=== PATIENT | female | born 1970 | race Caucasian/White ===

== ENCOUNTER → 2020-07-26 13:41 | Outpatient (CLI) | payer OTHER, SELFPAY ==
--- NOTE | ~2020-07-26 | MM_ITS ---
EXAMINATION: MM screening estelita BI w kate HISTORY: Screening TECHNIQUE: Craniocaudal and mediolateral oblique 3-D tomosynthesis images were obtained and synthetic 2-D images were generated. CAD analysis was submitted and interpreted. COMPARISON: Comparison to multiple prior studies sequentially, with oldest reviewed study dated 11/25. BREAST PARENCHYMAL COMPOSITION: There are scattered areas of fibroglandular density. FINDINGS: There is no evidence of suspicious mass, calcification, or architectural distortion to sugg est malignancy in either breast. There has been no suspicious interval change. IMPRESSION: 1. No mammographic evidence of malignancy. 2. Recommend routine screening mammography in one year. BI-RADS Category 1: Negative Reviewed, dictated and finalized at location A.
== END ==
PROVIDERS: PCP Nurse Practitioner Adult Health; Visit Provider Nurse Practitioner Adult Health
DX: Z12.31 Encounter for screening mammogram for malignant neoplasm of breast (principal)
CPT/HCPCS: 77063; 77067

== ENCOUNTER 2022-10-09 17:21 | Emergency (ER) | payer OTHER, SELFPAY ==
[2022-10-09 17:52] VITALS: BP 132/81; PULSE 74; RESP 16; TEMP 36.8; O2SAT 97
--- NOTE | 2022-10-09 18:40 | ED.BACK ---
HPI - Back Pain/Injury General Chief Complaint: Back Pain/Injury Stated Complaint: low back pain Time Seen by Provider: 10/09/22 18:40 Source: patient Mode of arrival: ambulatory Limitations: no limitations History of Present Illness HPI Narrative: 52 y/o female presented for c/o back pain since getting out of a chair 3 days ago. Endorses Right lower back radiates to right hip, states it feels like a tight knot and spasms. Patient has been using heat, ice, massage and stretching without relief. Denies numbness, tingling, weakness of the extremity. Related Data Allergies Allergy/AdvReac Type Severity Reaction Status Date / Time No Known Allergies Allergy Verified 10/09/22 18:05 Review of Systems Review of Systems: CONSTITUTIONAL: Denies body aches, fever, chills EYES: Denies visual changes CARDIOVASCULAR: Denies chest pain, palpitations, or edema. RESPIRATORY: Denies cough or dyspnea. GASTROINTESTINAL: Denies abdominal pain, nausea, vomiting, or diarrhea. SKIN: Denies rash, itching, or wounds. MUSCULOSKELETAL: reports back pain NEUROLOGIC: Denies headache, numbness, tingling, or weakness. All systems reviewed & are unremarkable except as noted in HPI and below PMFSH Comments At time of signature, I have reviewed and agree with nursing past medical, surgical, social and family history unless otherwise noted. Please see nursing chart for further information. There is no relevant family history pertinent to the presenting complaint Exam Narrative: GENERAL: Well-appearing, well-nourished, and in no acute distress. HEAD: Normocephalic, atraumatic. EYES: conjunctivae clear NECK: Supple. full ROM CHEST: Speaks in full sentences. No respiratory distress. HEART: Regular rate and rhythm. Normal and equal peripheral pulses. MUSC: Right lower back/hip pain with deep palpation, No Vertebral point tenderness. BLEs with normal strength and sensation, normal range of motion. No open wounds, alignment normal, pulse palpable and equal bilaterally, skin warm, dry, pink. Capillary refill less than 3 seconds. Gait steady. SKIN: Warm, dry, no rash. NEURO: Alert and oriented x3. Course Course Emergency Course: Patient is aware of diagnosis, understands and agrees to treatment plan. Anticipatory guidance given. Patient agrees to follow-up as directed and is aware of reasons to seek care at the emergency department. Portions of this record may have been created with voice recognition software Level of Care: Express Care Visit Vital Signs Vital signs: Vital Signs Temperature 98.2 F 10/09/22 17:52 Pulse Rate 74 10/09/22 17:52 Respiratory Rate 16 10/09/22 17:52 Blood Pressure 132/81 10/09/22 17:52 Pulse Oximetry 97 10/09/22 17:52 Temperature 98.2 F 10/09/22 17:52 Pulse Rate 74 10/09/22 17:52 Respiratory Rate 16 10/09/22 17:52 Blood Pressure 132/81 10/09/22 17:52 Pulse Oximetry 97 10/09/22 17:52 Oxygen Delivery Room Air 10/09/22 18:00 Reviewed MDM - Back Pain/Injury MDM Narrative Medical decision making narrative: Advised supportive measures and s/s to go to the ER. Pt is stable and appropriate for outpt treatment and follow up with pcp. Differential Diagnosis Differential diagnosis: Likely lumbar radiculopathy, sciatica, strain of lumbar region, renal colic, pyelonephritis and discitis Discharge Plan Discharge Clinical Impression: Lower back pain Patient Disposition: Home, Self-Care Condition: Stable Instructions: Acute Low Back Pain (ED) Additional Instructions: Rest. Avoid pushing, pulling, lifting or anything that worsens the symptoms Tylenol 1000mg every 8 hours as needed Cyclobenzaprine (Flexeril) is a muscle relaxer. Take it as directed. It can cause drowsiness so do not drive or operate machinery until you know how it makes you feel. Alternate ice/heat to the site. Lidocaine or salon pas pain patch or use pain cream like icy/hot or biofreeze. Follow up with
== END 2022-10-09 18:50 | disposition home or self-care (01) ==
PROVIDERS: Emergency Provider Nurse Practitioner Family
DX: M54.50 Low back pain, unspecified (principal); Z98.84 Bariatric surgery status
CPT/HCPCS: 99203; G0463

== ENCOUNTER → 2022-11-14 12:19 | Outpatient (CLI) | payer OTHER, SELFPAY ==
--- NOTE | ~2022-11-14 | MM_ITS ---
EXAMINATION: MM screening estelita BI w kate HISTORY: Screening TECHNIQUE: Craniocaudal and mediolateral oblique 3-D tomosynthesis images were obtained and synthetic 2-D images were generated. CAD analysis was submitted and interpreted. COMPARISON: Comparison to multiple prior studies sequentially, with oldest reviewed study dated 11/25. BREAST PARENCHYMAL COMPOSITION: There are scattered areas of fibroglandular density. FINDINGS: There is no evidence of suspicious mass, calcification, or architectural distortion to sugg est malignancy in either breast. There has been no suspicious interval change. IMPRESSION: 1. No mammographic evidence of malignancy. 2. Recommend routine screening mammography in one year. BI-RADS Category 1: Negative Reviewed, dictated and finalized at location A. ANICAL SERVICE REPRESENTATIVE
== END ==
PROVIDERS: PCP Obstetrics & Gynecology; Visit Provider Obstetrics & Gynecology
DX: Z12.31 Encounter for screening mammogram for malignant neoplasm of breast (principal)
CPT/HCPCS: 77063; 77067

== ENCOUNTER 2023-01-27 05:52 | Day surgery (SDC) | payer OTHER, SELFPAY ==
[2022-11-14 14:00] VITALS: BMI 30.7
[2023-01-16 09:39] VITALS: BMI 29.2
--- NOTE | 2023-01-27 07:22 | P.PNAN_ITS ---
Anes - Initial Pre Proc Eval Procedure: Operation Date: 01/27/23 07:30 Proposed Procedures p Screening Colonoscopy - Obie Hoang MD Date/Time: 01/27/23 07:22 Surgeon: Obie Hoang MD Pre Op Diagnosis: Neoplasm Screening Patient Data Age: 52 Gender: F Height: 1.68 m Weight: 91.9 kg Allergies Allergy/AdvReac Type Severity Reaction Status Date / Time No Known Allergies Allergy Verified 01/27/23 06:35 Home Medications Medication Instructions Recorded Confirmed Type cranberry [id number] 1 tablet PO DAILY 01/16/23 01/27/23 History coagulans 250 mg-30 mg-15 mg tablet (Azo Cranberry Plus Probiotic) multivit with minerals-iron 18 1 tablet PO DAILY 01/16/23 01/27/23 History mg-folic ac 400 mcg-vit K 25 mcg tablet (Adults Multivitamin) sertraline 50 mg tablet 50 mg PO DAILY 01/16/23 01/27/23 History Patient hx anesthesia problems: none Family hx anesthesia problems: none Results Review: All pre-operative results and documents have been reviewed as part of the pre- operative evaluation. [facility] Past Medical History Medical History (Updated 01/27/23 @ 07:23 by Chito Capone MD) Obesity Surgical History Surgical History (Updated 01/27/23 @ 07:23 by Chito Capone MD) S/P gastric surgery Social History Social History Smoking packs per day: 1 Smoking cigarettes per day: 20.0 Years smoked: 25 Smoking pack-years: 25.00 Smoking status: Former smoker Tobacco type: cigarettes Smoking end date: 10/13/08 Alcohol intake: current Drinks per week: 1 Substance use: never Substance use type: does not use Living arrangements: with family Spiritual care concerns: No Anes - Eval Final PreProcedure Day of Procedure 01/27/23 07:22 Patient weight: obese Heart: regular rate and rhythm Lungs: clear to auscultation Airway: Mallampati scale class II Neurological: alert and oriented Last oral intake: >/= 8 hours ASA classification: II Emergent: no Anesthetic plan: proceed Anesthesia type and monitoring: general GIVS and standard monitoring Results Review: All pre-operative results and documents have been reviewed as part of the pre- operative evaluation. Informed Consent: The patient's anesthetic plan and its attendant risks and benefits were discussed with the patient/family/POA. Questions were solicited and answers provided to the satisfaction of the patient/family/POA.
[2023-01-27] MEDS: LACTATED RINGERS 1,000 ML 150 ML IV CONT (07:24)
--- NOTE | 2023-01-27 07:35 | PM.HPGS ---
History of Present Illness History of Present Illness Consent: Risks, benefits, and alternatives have been discussed and questions answered. Patient agrees to proceed with procedure. Chief complaint: Neoplasm Screening Narrative: Deidra Valdovinos is a 52 year old female here for first screening colonoscopy Review of Systems Constitutional: Constitutional: Denies headache(s) and Denies weakness Eyes: Eyes: Denies blurry vision ENT: Reports Normal hearing present, Denies headache(s) and Denies neck pain Cardiovascular: Cardiovascular: Denies chest pain and Denies dyspnea Respiratory: Respiratory: Denies dyspnea Gastrointestinal: Gastrointestinal: Reports no additional gastrointestinal complaints Genitourinary: Genitourinary: Denies dysuria Musculoskeletal: Musculoskeletal: Denies neck pain Integumentary/Breasts: Skin/Breast: Denies dry skin Neurologic: Reports Normal hearing present, Denies headache(s) and Denies weakness Psychiatric: Psychiatric: Denies anxiety Endocrine: Endocrine: Denies change in body appearance Hematologic/Lymphatic: Hematologic/Lymphatic: Denies easy bleeding Allergic/Immunologic: Allergic/Immunologic: Denies urticaria [facility] Past Medical History Medical History (Updated 01/27/23 @ 07:35 by Obie Hoang MD) Colon cancer screening Obesity Surgical History Surgical History (Updated 01/27/23 @ 07:23 by Chito Capone MD) S/P gastric surgery Social History Social History Smoking packs per day: 1 Smoking cigarettes per day: 20.0 Years smoked: 25 Smoking pack-years: 25.00 Smoking status: Former smoker Tobacco type: cigarettes Smoking end date: 10/13/08 Alcohol intake: current Drinks per week: 1 Substance use: never Substance use type: does not use Living arrangements: with family Spiritual care concerns: No Meds Home Medications and Allergies Home Medications Medication Instructions Recorded Confirmed Type cranberry [id number] 1 tablet PO DAILY 01/16/23 01/27/23 History coagulans 250 mg-30 mg-15 mg tablet (Azo Cranberry Plus Probiotic) multivit with minerals-iron 18 1 tablet PO DAILY 01/16/23 01/27/23 History mg-folic ac 400 mcg-vit K 25 mcg tablet (Adults Multivitamin) sertraline 50 mg tablet 50 mg PO DAILY 01/16/23 01/27/23 History Allergies Allergy/AdvReac Type Severity Reaction Status Date / Time No Known Allergies Allergy Verified 01/27/23 06:35 Exam Const: General: comfortable and no acute distress HENMT: Face/Nose/Sinus: Normal nares present Eyes: General: appearance normal, both eyes and all related structures Neck: Neck: no JVD Resp: Auscultation: clear to auscultation bilaterally Cardio: Rate: regular rate Rhythm: regular rhythm GI: Inspection: non-distended GI Palp: Yes Soft to palpation Skin: General skin exam: normal color Neuro: General: gait normal Speech: normal speech Extrem: General: normal to inspection Psych: Mental Status: mental status grossly normal Assessment and Plan Assessment and plan (1) Colon cancer screening: Code(s): Z12.11 - Encounter for screening for malignant neoplasm of colon Status: Acute Assessment and Plan: colonoscopy
[2023-01-27 08:01] VITALS: BP 102/51; PULSE 58; RESP 18; O2SAT 97
[2023-01-27 08:02] VITALS: BP 103/63; PULSE 57; RESP 20; O2SAT 100
--- NOTE | 2023-01-27 08:07 | WPDANESPN ---
Anes - Prog Note Post-Op Date/Time: 01/27/23 08:07 Cardiovascular status: normal Respiratory status: normal Airway patency: baseline Mental status: baseline Post-Op hydration status: normal Vital Signs: Last Vital Signs Pulse 57 L 01/27/23 08:02 Resp 20 01/27/23 08:02 BP 103/63 01/27/23 08:02 Pulse Ox 100 01/27/23 08:02 O2 Del Method Room Air 01/27/23 08:02 Pain Score (VAS): 0/10 Patient Feedback: Patient satisfied with anesthetic care.
[2023-01-27 08:12] VITALS: BP 104/68; PULSE 59; RESP 20; O2SAT 100
== END 2023-01-27 08:25 | disposition home or self-care (01) ==
PROVIDERS: Visit Provider Internal Medicine Gastroenterology
PROC: 0DJD8ZZ Inspection of Lower Intestinal Tract, Via Natural or Artificial Opening Endoscopic (ICD-10-PCS; CPT 45378; principal; 2023-01-27 07:30)
DX: Z12.11 Encounter for screening for malignant neoplasm of colon (principal)
CPT/HCPCS: 45378

== ENCOUNTER 2023-04-21 08:11 | Outpatient (CLI) | payer OTHER, SELFPAY ==
--- NOTE | ~2023-04-21 | MR_ITS ---
MRI of the left knee Clinical history: Pain Technique: Coronal proton density and proton density-weighted images, sagittal proton-density and T2 fat-sat images, and axial proton-density fat-saturated images were acquired. Findings: Anterior and posterior cruciate ligaments are intact. Medial collateral ligament and the la teral collateral ligament complex are intact. Popliteus tendon is intact. There is probable complex tear of the body segment of the medial meniscus which is relatively diminut john. No lateral meniscal tear seen. There is focal moderate chondromalacia at the lateral joint line. There is additional focal high-grad e chondral malacia the central aspect of the medial femoral condyle. Lateral compartment articular ca rtilage is well preserved. Femoral trochlear cartilage is well preserved. There is high-grade chondro malacia over the lateral patellar facet. Extensor mechanism is intact. Small joint effusion present. No Mon's cyst. Impression: Suspected complex tear of the body segment of the medial meniscus, which is relatively diminutive. 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 Reviewed, dictated and finalized at location M. Impression: Suspected complex tear of the body segment of the medial meniscus, which is rel atively diminutive. 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
== END 2023-04-21 08:12 ==
PROVIDERS: PCP Internal Medicine; Visit Provider Orthopaedic Surgery
DX: M94.262 Chondromalacia, left knee (principal)
CPT/HCPCS: 73721

== ENCOUNTER 2023-07-10 15:00 | Outpatient (RCR) | payer OTHER, SELFPAY ==
--- NOTE | 2023-06-04 14:28 | OPREHPOC ---
Outpatient Therapy Plan of Care This is a Multidisciplinary Plan of Care that may contain components documented by all disciplines (PT, OT, and ST.) PT Problem 1 PT Problem #1 Knowledge Deficit PT Goal 1 Goal 1. Patient will perform independent HEP Target Visit 5 PT Problem 2 PT Problem #2 Impaired Strength PT Goal 1 Goal 1. Improve pelvic floor strength to 4/5 to decrease incontinence 2. Improve pelvic floor endurance to 10 seconds to decrease incontinence Target Visit 5 PT Goal 2 Goal 3. Improve hip strength to 4+/5 radu Target Visit 5 PT Problem 3 PT Problem #3 Impaired Functional ADLs PT Goal 1 Goal 1. Patient will report no more than 1 instance of incontinence in a 2 week time frame Target Visit 5
--- NOTE | 2023-06-04 14:28 | PTOPEVAL1 ---
Assessment and note entered by Sri Mcguire DPT Evaluation Information Assessment Status Evaluation Subjective Information Pt reports urinary incontinence that is worsening over time, about a year at least. Incontinence occurs 3 times a week, is typically a small volume . Urinates more than 10 times a day and usually none at night. Can hold urge 45-60 minutes. Sometimes will gomez to the bathroom due to fear of leaking. Usually occurs while on the way to the bathroom. Typically does not have pain with urination but has had 8 UTI's in the last 2 years and has symptoms currently. Has not had her urine cultured all the time, started antibiotic last night. BM 1-2 times a day, denies pain. No history of pelvic pain. Pt has been 2 times, 2 vaginal deliveries with tearing with at least 1 of them. Had a growth removed from her uterus 10 years ago. Uses IUD for heavy periods. Has been told she is post-menopausal. No other b/b issues. Patient goal: not have to pee my pants . Has had moments where she has had to change her clothes due to incontinence. Reports frustration. Reported Pain Level Pain Score 0: Self Report Assessment PT Clinical Summary The patient is presenting to skilled therapy with worsening urinary incontinence. She presents with decreased pelvic floor strength and endurance as well as decreased overall hip and core strength which are contributing to her incontinence that occurs multiple times a week. She will highly benefit from therapy to address these impairments in order to return to prior level of function. Plan of Care Interventions Manual Therapy,Neuro Re-education,Patient/ Caregiver Education,Therapeutic Activities, Therapeutic Exercise PT Services Indicated Yes Treatment Frequency and 1 time a week for 4 weeks Duration These treatments will address the objective and functional deficits as defined above. The patient will be advanced safely and appropriately in order for the patient to progress towards his/her prior level of function. Additional exercises will be introduced and as well as a comprehensive home exercise program upon discharge, if needed, ?to ensure carryover of functional gains achieved in the clinic. This treatment plan has been reviewed and agreement upon by the patient.
--- NOTE | 2023-06-26 13:23 | PCPTNOTE ---
Patient called to cancel appointment for 06/27/23. She stated she was unable to reschedule and would be at her next visit.
--- NOTE | 2023-07-10 15:33 | OPREHPOC ---
Outpatient Therapy Plan of Care This is a Multidisciplinary Plan of Care that may contain components documented by all disciplines (PT, OT, and ST.) PT Problem 1 PT Problem #1 Knowledge Deficit PT Goal 1 Goal 1. Patient will perform independent HEP Target Visit 5 Progress Met PT Problem 2 PT Problem #2 Impaired Strength PT Goal 1 Goal 1. Improve pelvic floor strength to 4/5 to decrease incontinence 2. Improve pelvic floor endurance to 10 seconds to decrease incontinence Target Visit 5 Progress Partially Met Comment 3/5, 10 seconds PT Goal 2 Goal 3. Improve hip strength to 4+/5 rdau Target Visit 5 Progress Partially Met PT Problem 3 PT Problem #3 Impaired Functional ADLs PT Goal 1 Goal 1. Patient will report no more than 1 instance of incontinence in a 2 week time frame Target Visit 5 Progress Partially Met
--- NOTE | 2023-07-10 15:33 | PTOPDC ---
Assessment and note entered by Sri Mcguire DPYamile Evaluation Information Assessment Status Discharge Subjective Information Pt reports she has been very busy and struggling to do HEP. States her incontinence has been sporadic, is not happening every day. Does report she thinks her incontinence is occurring less often but hard to keep track. Reported Pain Level Pain Score 0: Self Report Assessment PT Clinical Summary The patient has made some progress in therapy and reports she thinks her incontinence is occurring less often. She demonstrates improved hip strength and improved pelvic floor endurance. She states she would like to discharge to independent program this visit due to busy schedule and will be out of town for several weeks. The patient has been educated in a thorough HEP and educated to follow up with MD and/or PT as needed. Plan of Care PT Services Indicated No
== END 2023-07-11 10:17 | disposition home or self-care (01) ==
LOC: ANHPT 15:00
PROVIDERS: PCP Internal Medicine; Visit Provider Internal Medicine
DX: R32 Unspecified urinary incontinence (principal)
CPT/HCPCS: 97112; 97161; 97530

== ENCOUNTER 2024-11-23 12:06 | Emergency (ER) | payer OTHER, SELFPAY ==
[2024-11-23 12:14] VITALS: BP 124/73; PULSE 73; RESP 16; TEMP 36.6; O2SAT 100
--- NOTE | 2024-11-23 12:16 | ED_ITS ---
HPI - URI/Sore Throat General Chief Complaint: Upper Respiratory Infection Stated Complaint: Upper Respiratory Symptoms Source: patient and RN notes reviewed Mode of arrival: ambulatory Limitations: no limitations History of Present Illness HPI Narrative: Patient is a 54-year-old female who presents to the [facility] with complaints of sinus pain and pressure for the past 3 weeks. Patient endorses intermittent headache. States that she has had ongoing intermittent nausea for the last 3 weeks as well. She denies cough, shortness of breath, chest pain. Denies sore throat or fevers. Related Data Home Medications ?Medication ?Instructions ?Recorded ?Confirmed ?Last Taken ?Type multivit with minerals-iron 18 1 tablet PO DAILY 01/16/23 11/23/24 01/16/23 History mg-folic ac 400 mcg-vit K 25 mcg tablet (Adults Multivitamin) ascorbate calcium (vitamin C) 500 500 mg PO DAILY 02/12/23 11/23/24 Unknown History mg tablet cyanocobalamin (vitamin B-12) 500 250 mcg PO DAILY 02/12/23 11/23/24 Unknown History mcg tablet (B-12 DOTS) Allergies Allergy/AdvReac Type Severity Reaction Status Date / Time No Known Allergies Allergy Verified 11/23/24 12:12 Review of Systems Review of Systems: CONSTITUTIONAL: Denies fever, chills, or sweats. EYES: Denies visual changes, redness, or discharge. ENT: Denies otalgia and sore throat. Reports sinus pain and pressure. He reports congestion. CARDIOVASCULAR: Denies chest pain, palpitations, or edema. RESPIRATORY: Denies cough or dyspnea. GASTROINTESTINAL: Denies abdominal pain, nausea, vomiting, or diarrhea. GENITOURINARY: Denies dysuria or hematuria. SKIN: Denies rash or itching. MUSCULOSKELETAL: Denies back pain, joint pain, or myalgia. NEUROLOGIC: Reports headache but denies numbness or weakness. Pertinent positives per HPI. [facility] Past Medical History Medical History Fracture of fifth metacarpal bone of left hand Fracture of metacarpal of left hand, closed History of bruising easily History of stress test History of postoperative nausea and vomiting Colon cancer screening Obesity Surgical History Surgical History History of knee surgery History of tubal ligation S/P gastric surgery Family History Family History Unknown Diabetes mellitus Social History Social History Smoking packs per day: 1 Smoking cigarettes per day: 20.0 Years smoked: 25 Smoking pack-years: 25.00 Smoking status: Former smoker Tobacco type: cigarettes Smoking end date: 10/13/08 Alcohol intake: current Drinks per week: 1 Substance use: never Substance use type: does not use Lack of Transportation: No Lack of Food: Never True Current Housing: Decline to Answer Concerned About Future Housing: Decline to Answer Difficulty Paying Gas/Electric Bills: Decline to Answer Difficulty Paying for Meds: Decline to Answer Currently Unemployed: Decline to Answer Education: Decline to Answer Difficulty w/ Childcare or Family Care: Decline to Answer Living arrangements: with family Spiritual care concerns: No Comments At the time of my signature, I reviewed and agree with the nursing past medical, surgical, social, and family history. There is no relevant family history pertinent to the patient complaint. Exam Narrative: GENERAL: This is a well-nourished, well-developed patient, in no apparent distress. HEAD: normocephalic, atraumatic. EYES: PERRL. Sclera clear/white. Vision is grossly intact. EARS: External ears normal, auditory canals clear and without drainage, TMs normal without perforation. Hearing grossly intact. NOSE: External nose normal with no obvious nasal discharge, nares without redness, no rhinorrhea. THROAT: Mucous membranes moist, posterior pharynx clear. NECK: Neck supple, non-tender without lymphadenopathy, masses or thyromegaly. CARDIOVASCULAR: Regular rate and rhythm without murmurs, gallops, or rubs. RESPIRATORY: Clear to auscultation. Breath sounds equal bilaterally. No wheezes, rales, or rhonchi. GASTROINTESTINAL: Abdomen soft, non-tender, nondistended. Bowel sounds are active. No hepato-splenomegaly, or palpable masses. No guarding. SKIN: warm, intact with no suspicious lesions or rash, good texture and turgor. NEURO: awake, alert, and oriented to person, place and time. There were no obvious focal neurologic abnormalities. EXTREMITIES: No clubbing, cyanosis, or edema. No joint tenderness, effusion, or edema noted. BACK: Nontender without deformity or crepitance. No flank tenderness. Course Course Level of Care: Express Care Visit Vital Signs Vital signs: Vital Signs Temperature 97.8 F 11/23/24 12:14 Pulse Rate 73 11/23/24 12:14 Respiratory Rate 16 11/23/24 12:14 Blood Pressure 124/73 11/23/24 12:14 Pulse Oximetry 100 11/23/24 12:14 Temperature 97.8 F 11/23/24 12:14 Pulse Rate 73 11/23/24 12:14 Respiratory Rate 16 11/23/24 12:14 Blood Pressure 124/73 11/23/24 12:14 Pulse Oximetry 100 11/23/24 12:14 Reviewed MDM - URI/Sore Throat MDM Narrative Medical decision making narrative: Go to the ER for any new or worsening symptoms. Avoid smoking/second-hand smoke. Continue to take Tylenol or Motrin for pain. Increase your Vitamin C intake. Use a humidifier or vaporizer at night. Take Medications as prescribed. Drink plenty of water. 8-10 glasses per day. Use flonase 2 times per day for 5 days then as needed Take mucinex 2 times per day and be sure to take with 8oz of water. Follow up with Primary provider if not getting better. Differential Diagnosis Differential diagnosis: Likely upper respiratory infection, sinusitis and viral infection Critical Care Time Critical Care Time Critical Care Time: No Discharge Plan Discharge Clinical Impression: Acute bacterial sinusitis Patient Disposition: Home, Self-Care Condition: Stable Instructions: Antibiotic Form, Sinusitis (ED) Additional Instructions: Go to the ER for any new or worsening symptoms. Avoid smoking/second-hand smoke. Continue to take Tylenol or Motrin for pain. Increase your Vitamin C intake. Use a humidifier or vaporizer at night. Take Medications as prescribed. Drink plenty of water. 8-10 glasses per day. Use flonase 2 times per day for 5 days then as needed Take mucinex 2 times per day and be sure to take with 8oz of water. Follow up with Primary provider if not getting better. Patient Language: [place] Prescriptions: New amoxicillin-pot clavulanate 875-125 mg tablet 1 tablet PO Q12H 10 Days Qty: 20 0RF fluticasone propionate [24 Hour Allergy Relief] 50 mcg/actuation spray,suspension 1 spray intranasal DAILY Qty: 16 0RF Rx Instructions: administer into each nostril ondansetron 4 mg tablet,disintegrating 4 mg PO Q8H PRN (Reason: nausea and vomiting) Qty: 20 0RF No Action ascorbate calcium (vitamin C) 500 mg tablet 500 mg PO DAILY cyanocobalamin (vitamin B-12) [B-12 DOTS] 500 mcg tablet 250 mcg PO DAILY Adults Multivitamin 18 mg iron-400 mcg-25 mcg Tablet 1 tablet PO DAILY Follow-up/Referrals: PHYSICIAN,[facility] [Primary Care Provider] - Time of Disposition: 12:24
== END 2024-11-23 12:26 | disposition home or self-care (01) ==
PROVIDERS: Emergency Provider Nurse Practitioner
DX: J01.90 Acute sinusitis, unspecified (principal); B96.89 Other specified bacterial agents as the cause of diseases classified elsewhere; Z87.891 Personal history of nicotine dependence
CPT/HCPCS: 99213; G0463